=== PATIENT | male | born 1985 | race Caucasian/White ===

== ENCOUNTER 2023-10-14 08:59 | Emergency (ER) | payer OTHER ==
[~2023-10-14] VITALS: Ht 180.3 cm; Wt 101.4 kg
[2023-10-14 09:09] VITALS: TEMP 98.1
[2023-10-14] MEDS ORDERED: TYLENOL 500MG500 MG PO (09:27)
[2023-10-14] MEDS ORDERED: ADVIL200 MG PO (09:27)
[2023-10-14] MEDS ORDERED: IMITREX100 MG PO (09:28)
[2023-10-14] MEDS ORDERED: AZO URINARY PAI95 MG PO (09:29)
[2023-10-14] MEDS ORDERED: Ondansetron 4 MG/2 ML VIAL IV ONE (09:30)
[2023-10-14] MEDS ORDERED: Morphine 4 MG/ML VIAL IV ONE (09:30)
[2023-10-14 10:04] LABS: BASO % 0.4 % (0.0-2.0); EOS # 0.1 K/mm3 (0.0-0.7); EOS % 1.5 % (0.0-4.0); GRAN # 4.7 K/mm3 (1.4-6.5); GRAN % 66.2 % (42.2-75.2); HEMATOCRIT 48.2 % (42.0-52.0); HEMOGLOBIN 17.6 g/dl (13.5-18.0); LYMPH # 1.9 K/mm3 (1.2-3.4); MEAN CELL VOLUME 91 fl (80.0-100.0); MEAN CORPUSCULAR HEMOGLOBIN 33 pg (27-31); MEAN CORPUSCULAR HGB CONC 37 g/dl (33.0-37.0); MEAN PLATELET VOLUME 10.4 fl (7.4-10.4); MONO # 0.4 K/mm3 (0.1-0.6); MONO % 5.6 % (1.7-9.3); PLATELET COUNT 257 K/mm3 (130-400); RED BLOOD COUNT 5.29 M/mm3 (4.20-5.60); REDCELL DISTRIBUTION WIDTH-CV 11.8 % (11.5-14.5)
[2023-10-14 10:16] LABS: PH 6.5 (5.0-8.5); URINE APPEARANCE CLEAR (CLEAR/HAZY); URINE BLOOD 1+ (NEGATIVE); URINE COLOR YELLOW (YELLOW); URINE GLUCOSE NEGATIVE (NEGATIVE); URINE KETONE NEGATIVE (NEGATIVE); URINE NITRATE NEGATIVE (NEGATIVE); URINE PROTEIN(semi-quant) NEGATIVE (NEGATIVE); URINE UROBILINOGEN 0.2 E.U/dL (0.2-1.0)
[2023-10-14 10:31] LABS: ALBUMIN 4.5 g/dL (3.5-5.0); BILIRUBIN,TOTAL 0.8 mg/dL (0.2-1.2); CALCIUM 10.4 mg/dL (8.4-10.2); CREATININE, serum 1.12 mg/dL (0.72-1.25); POTASSIUM 4.5 mEq/L (3.5-4.5); TOTAL PROTEIN 7.9 g/dl (6.2-8.1)
[2023-10-14] MEDS ORDERED: ROXICODONE 55 MG/TAB PO (10:42)
[2023-10-14] MEDS ORDERED: ZOFRAN ODT4 MG PO (10:42)
[2023-10-14 10:58] LABS: COLLECTION METHOD CLEAN CATCH
[2023-10-14 11:20] VITALS: BP 136/88; PULSE 88
== END 2023-10-14 11:21 | disposition home or self-care (01) ==
LOC: COL.ER 08:59
PROVIDERS: Emergency Medicine
DX: N13.2 Hydronephrosis with renal and ureteral calculous obstruction (principal)
CPT/HCPCS: J2270; J2405